=== PATIENT | female | born 1980 | race Caucasian/White ===

== ENCOUNTER 2018-09-07 11:58 | Emergency (ER) | payer BC, MEDICAID ==
[~2018-09-07] VITALS: Wt 56.0 kg
[2018-09-07 12:00] VITALS: Wt 56.0 kg
[2018-09-07] MEDS ORDERED: SOD CHLORIDE 0.9% 1,000 ML IV STA (12:09)
[2018-09-07] MEDS ORDERED: ONDANSETRON 4 MG INJ IV STA (12:09)
--- NOTE | 2018-09-07 12:12 | ERD ---
ER Documentation Chief Complaint Chief Complaint NAUSEA AND VOMITING, INITIALLY C/O BACK PAIN HPI This is a 38-year-old female who is presenting with left-sided flank pain, nausea, an episode of nonbilious nonbloody vomiting in triage and feeling generally unwell. The patient reports that the left-sided flank pain started 2 to 3 days ago but became acutely worse this morning. She describes it as left- sided, nonradiating, constant since this morning, sharp, colicky and moderate. She does admit to taking hydrocodone prior to leaving her home. She reports that this did not help the pain. She does not endorse any exacerbating or alleviating factors. She was reportedly hypotensive in triage after her vomiting episode. The patient reports feeling lightheaded when getting into the car on her way to the ER, but this has since improved. The patient denies feeling sick recently. The patient denies fever or chills. The patient has had no headache or vision changes. The patient does not endorse neck or back pain. The patient denies dizziness. The patient has had no chest pain or trouble breathing. The patient denies abdominal pain. The patient denies changes to bowel movements or urination. She does not endorse constipation or diarrhea. She does not endorse black or bloody or tarry stools. She does not endorse dysuria or hematuria or urgency or frequency. The patient does not report any vaginal complaints. The patient has had no focal deficits. The patient has had no weakness or numbness or tingling to the face or extremities. ROS All systems reviewed and are negative except as per history of present illness. Medications Home Meds Reported Medications Amphet Iyh-Fddflf-R-Amphet (Adderall) 15 Mg Tablet, 15 MG PO BID, TAB 09/07/18 Allergies Allergies: Coded Allergies: No Known Allergy (Unverified , 09/07/18) PMhx/Soc Medical and Surgical Hx: pt denies Medical Hx, pt denies Surgical Hx FmHx Family History: No diabetes Physical Exam Vitals Vital Signs Date Temp Pulse Resp B/P (MAP) Pulse Ox O2 O2 Flow FiO2 Time Delivery Rate 09/07/18 75 16 99/59 (72) 98 Room Air 18:00 09/07/18 73 17 94/62 (73) 99 Room Air 16:00 09/07/18 80 18 95/60 (72) 99 Room Air 14:00 09/07/18 99.0 68 14 92/72 (79) 99 Room Air 12:05 09/07/18 97.7 83 18 70/50 (57) 99 12:00 Physical Exam Const: No apparent distress, well-developed, well-nourished Head: Normocephalic, Atraumatic Eyes: Normal Conjunctiva. Extraocular movements grossly intact. ENT: Normal External Ears, Nose and Mouth. Neck: Full range of motion. No meningismus. Resp: Clear to auscultation bilaterally, No wheezes, rales or rhonchi Cardio: Regular rhythm. Mild tachycardia. No murmurs, rubs or gallops Abd: Soft, non tender, non distended. Normal bowel sounds Skin: No petechiae or rashes Back: No midline tenderness. Left-sided CVA tenderness Ext: No cyanosis, or edema Neur: Awake and alert, oriented 4. Cranial nerves intact. No facial droop. Normal strength, sensation and coordination. Psych: Normal Mood and Affect Result Diagram: 09/07/18 1221 09/07/18 1221 Results 24 hrs Laboratory Tests Test 09/07/18 12:21 09/07/18 14:06 09/07/18 14:13 White Blood Count 10.3 10^3/ul Red Blood Count 3.78 10^6/ul Hemoglobin 12.4 g/dl Hematocrit 36.5 % Mean Corpuscular Volume 96.6 fl Mean Corpuscular Hemoglobin 32.8 pg Mean Corpuscular 34.0 g/dl Hemoglobin Concent Red Cell Distribution Width 12.3 % Platelet Count 277 10^3/UL Mean Platelet Volume 10.5 fl Immature Granulocytes % 0.300 % Neutrophils % 64.0 % Lymphocytes % 26.2 % Monocytes % 8.2 % Eosinophils % 1.1 % Basophils % 0.2 % Nucleated Red Blood Cells % 0.0 /100WBC Immature Granulocytes # 0.030 10^3/ul Neutrophils # 6.6 10^3/ul Lymphocytes # 2.7 10^3/ul Monocytes # 0.9 10^3/ul Eosinophils # 0.1 10^3/ul Basophils # 0.0 10^3/ul Nucleated Red Blood Cells # 0.0 10^3/ul Sodium Level 140 mmol/L Potassium Level 4.4 mmol/L Chloride Level 106 mmol/L Carbon Dioxide Level 28 mmol/L Anion Gap 6 Blood Urea Nitrogen 11 mg/dl Creatinine 0.59 mg/dl Est Glomerular Filtrat > 60 mL/min Rate mL/min Glucose Level 102 mg/dl Calcium Level 9.8 mg/dl Total Bilirubin 0.4 mg/dl Direct Bilirubin 0.00 mg/dl Indirect Bilirubin 0.4 mg/dl Aspartate Amino 27 IU/L Transf (AST/SGOT) Alanine 23 IU/L Aminotransferase (ALT/SGPT) Alkaline Phosphatase 36 IU/L Total Protein 7.3 g/dl Albumin 4.2 g/dl Globulin 3.10 g/dl Albumin/Globulin Ratio 1.35 Lipase 43 U/L Beta HCG, Quantitative 634928.0 mIU/ml Ethyl Alcohol Level < 10.0 mg/dl Urine Color RED Urine Clarity CLOUDY Urine pH 7.0 Urine Specific [place] 1.012 Urine Ketones 1+ mg/dL Urine Nitrite NEGATIVE mg/dL Urine Bilirubin NEGATIVE mg/dL Urine Urobilinogen NEGATIVE mg/dL Urine Leukocyte Esterase NEGATIVE Diya/ul Urine Microscopic RBC 3 /HPF Urine Microscopic WBC 6 /HPF Urine Squamous Epithelial Cells FEW /HPF Urine Amorphous Crystals FEW /HPF Urine Bacteria FEW /HPF Urine Mucus MODERATE /HPF Urine Hemoglobin NEGATIVE mg/dL Urine Glucose NEGATIVE mg/dL Urine Total Protein NEGATIVE mg/dl Urine Opiates Screen Positive Urine Barbiturates Negative Urine Amphetamines Screen Negative Urine Benzodiazepines Screen Negative Urine Cocaine Screen Negative Urine Cannabinoids Positive POC Beta HCG, Qualitative POSITIVE Current Medications Medications Dose Sig/Sumanth Start Time Status Last (Trade) Ordered Route PRN Stop Time Admin Dose Reason Admin Sodium 1,000 ml @ Q1H STAT 09/07/18 DC 09/07/18 Chloride 1,000 mls/hr IV 12:09 12:38 09/07/18 13:08 Ondansetron 4 mg ONCE STAT 09/07/18 DC 09/07/18 HCl (Zofran IV 12:09 12:38 Inj) 09/07/18 12:10 Ketorolac 15 mg ONCE STAT 09/07/18 DC 09/07/18 Tromethamine IV 12:20 12:37 (Toradol) 09/07/18 12:32 Sodium 1,000 ml @ Q1H ONCE 09/07/18 DC 09/07/18 Chloride 1,000 mls/hr IV 13:30 13:31 09/07/18 14:29 Ceftriaxone 50 ml @ ONCE ONCE 09/07/18 DC 09/07/18 Sodium 100 mls/hr IVPB 17:00 17:08 09/07/18 17:29 Procedures/MDM MDM The patient's presentation warrants further investigation. Previous medical records, if available, were reviewed. LABS The patient's laboratory testing was obtained and reviewed. No emergent treatment was required unless described below. CBC: No E/o systemic infection or severe anemia or thrombocytopenia Chemistry: No E/o severe acidosis or alkalosis or renal failure or liver disease or diabetic ketoacidosis Lipase: No E/o pancreatitis Urine: E/o acute infection without hematuria HCG: Positive EKG EKG read by me: Rate/Rhythm: Regular rate and rhythm at a rate of 69 bpm Intervals: Normal [place]: Normal Impression: No evidence of acute ischemia or arrhythmia IMAGING US PELVIS FINDINGS: The uterus is normal in echogenicity and anteverted in orientation. No focal fibroids are identified. Within the endometrial canal, gestational sac with normal double decidual reaction is identified. pole is identified. The crown-rump length measures 2.81 cm corresponding to an estimated age of 9 weeks 3 days. Positive cardiac activity is detected at a rate of 153 beats per minute. A small subchorionic hemorrhage is seen measuring 1.5 x 1.2 cm. The cervix is normal in appearance. Left ovary is identified, and is normal in appearance. Right ovary is not seen. There are no complex adnexal masses. Normal Doppler flow is noted left ovary. Left ovary measures 3.7 x 2.6 x 3.7 cm. There is no free fluid in the pelvis IMPRESSION: 1. Single live intrauterine of approximate 9 weeks 3 days gestation. 2. Positive cardiac activity. 3. Small subchorionic hemorrhage measuring 1.5 x 1.2 cm. 4. Left ovary unremarkable. 5. Right ovary not seen. There are no complex adnexal masses. 6. No free fluid Electronically viewed and signed by Carlos Tavarez MD, on 09/07/2018 15:37 TREATMENT/DISPOSITION The patient presents with left-sided flank pain. The patient's urinalysis is concerning for a possible infection. The patient does endorse left-sided flank pain. That said, there is no evidence of renal insufficiency. The patient is afebrile. I have decreased suspicion for pyelonephritis. The patient does not have significant hematuria. I have low suspicion for nephrolithiasis. The patient does not have any palpable pulsatile mass or severe abdominal pain radia ting to the back. I have low suspicion for aortic aneurysm, dissection or rupture. The patient was found to be with an intrauterine at approximately 9 weeks and 3 days gestational age with positive activity. There was a small subchorionic hemorrhage measuring 1.5 x 1.2 cm. We spoke to the on-call gambling broker, Dr. Hensley, who recommended RhoGam if the patient was Rh-. Otherwise, the patient should be given follow-up instructions on a threatened and should follow-up with the gambling broker. The patient reports that she is O+. She does not want to wait for blood type testing. The patient does not have any evidence of peritonitis. The patient does not have clinical symptoms concerning for mesenteric ischemia or ischemic colitis. The patient does not have right upper quadrant tenderness, and I have low suspicion for gallstones, cholecystitis or biliary colic. The patient does not have any epigastric pain. I have low suspicion for gastritis, PUD or GERD. The patient does not have left upper quadrant tenderness. I have low suspicion for pancreatitis. The patient does not have any right lower quadrant tenderness, or periumbilical tenderness. I have low suspicion for appendicitis. The patient does not have suprapubic tenderness. I have decreased suspicion for cystitis. The patient does not have any left lower quadrant tenderness, and I have low suspicion for diverticulosis or diverticulitis. The patient does not have any flank tenderness. The patient does not have gross hematuria. I have decreased suspicion for nephrolithiasis or renal colic. The patient was treated with IV fluids, Zofran with some improvement of her symptoms. The patient was later given a dose of Rocephin for a urinary tract infection. The patient's systolic blood pressure was stable in the 90s. The patient was given IV fluids with improvement of her symptoms. The patient's symptoms are not consistent with sepsis. I do not feel the patient requires a full septic work-up. DISCHARGE Upon reevaluation of the patient, symptoms have improved. No emergent diagnoses were identified. At this time, I feel that the patient stable for discharge. The patient was instructed to follow-up with a primary care physician in 1-3 days. The patient will be given strict precautions with which to return to the emergency department. Prescriptions: Tylenol, vitamins, Keflex Disclaimer: Inadvertent spelling and grammatical errors are likely due to EHR /dictation software use and do not reflect on the overall quality of patient care. Note that the electronic time recorded on this note does not necessarily reflect the actual time of the patient encounter. Departure Diagnosis: Primary Impression: First trimester Additional Impressions: Acute left flank pain Nausea & vomiting Vomiting type: unspecified Vomiting Intractability: non-intractable Qualified Codes: R11.2 - Nausea with vomiting, unspecified Urinary tract infection Urinary tract infection type: acute cystitis Hematuria presence: without hematuria Qualified Codes: N30.00 - Acute cystitis without hematuria Subchorionic hemorrhage Fetus number: single or unspecified fetus Trimester: first trimester Qualified Codes: O41.8X10 - Other specified disorders of amniotic fluid and membranes, first trimester, not applicable or unspecified; O46.8X1 - Other antepartum hemorrhage, first trimester Threatened Condition: Stable Patient Instructions: Flank Pain, Uncertain Cause, Nausea and Vomiting-Adult, Possible Miscarriage (Threatened ), : Your First Trimester Changes, Understanding Urinary Tract Infections (UTIs) Additional Instructions: Thank you for for coming to [facility] for your care today. Please ask your nurse or provider if you have questions about your care today and do not leave until all your questions have been answered. Please use any medications given as directed and follow-up with your doctor (or the doctor you were referred to) in the next 1-3 days. If you do not have a primary care doctor you may follow up at the [facility] or [facility] clinic (listed below). You may also use motrin and tylenol as needed for fever and/or pain unless inst ructed otherwise by your provider or nurse. Indications for more urgent follow- up have been discussed, but you may return to the Emergency Department at ANY time for any worrisome or worsening symptoms. If you have abdominal pain, please know that no test or exam you received is perfect and you should follow up within 8 hours for continued pain. If you had any imaging studies today, such as an X-Ray or CT Scan, these studies will be reviewed later by a radiologist. You will be called if there are important findings that were not identified today, so make sure the contact information you provided at registration is correct. If you received any narcotic pain control medicine today, such as Vicodin, Morphine or Dilaudid, your coordination and judgment may be affected for a number of hours. Please do not drive or operate heavy machinery, and you may want someone to assist you at home. If you were given a prescription for narcotic medication, be aware that it is very addictive- use sparingly and only if necessary. PLEASE SEEK FURTHER EVALUATION AND MANAGEMENT AT YOUR DOCTORS OFFICE WITHIN THE NEXT 1-3 DAYS. IT IS YOUR RESPONSIBILITY TO MAKE AN APPOINTMENT FOR FOLOW-UP CARE. IF YOU HAVE A PRIMARY DOCTOR, PLEASE CALL THEIR OFFICE TO SCHEDULE AN APPOINTMENT FOR FOLLOW UP. IF YOU DO NOT HAVE A PRIMARY DOCTOR YOU CAN CALL OUR PHYSICIAN REFERRAL HOTLINE AT IF YOU CAN NOT AFFORD TO SEE A PHYSICIAN YOU CAN CHOSE FROM THE FOLLOWING [facility] CLINICS: [id number] [id number] [facility] [address] [facility] [facility] [address] [facility] [address] [facility] [address] [facility]. [facility]. [address] ALEXANDRE HURLEY MD September 07, 2018 12:12
[2018-09-07] MEDS ORDERED: KETOROLAC 15 MG INJ IV STA (12:20)
[2018-09-07] MEDS ORDERED: SOD CHLORIDE 0.9% 1,000 ML IV ONE (13:30)
[2018-09-07] MEDS ORDERED: AMPH15TA PO (14:58)
[2018-09-07] MEDS ORDERED: CEFTRIAXONE 1 GM/50 ML (PMX) 50 ML IVPB ONE (17:00)
[2018-09-07 19:14] VITALS: BP 98/56; PULSE 78; RESP 13
[2018-09-07] MEDS ORDERED: CEPH500C PO (19:15)
[2018-09-07] MEDS ORDERED: ACET325T45 PO (19:15)
[2018-09-07] MEDS ORDERED: PREN1TAB91 PO (19:15)
== END 2018-09-07 19:24 | disposition home or self-care (01) ==
LOC: E/R 11:58
DX: N30.00 Acute cystitis without hematuria (principal); O46.8X1 Other antepartum hemorrhage, first trimester; R10.9 Unspecified abdominal pain; Z33.1 Pregnant state, incidental
CPT/HCPCS: 36415; 76801; 76817; 80053; 80307; 81001; 81025; 83690; 84702; 85025; 86850; 86900; 86901; 93005; 96361; 96365; 96375; 99285; J0696; J1885; J2405; J7030